=== PATIENT | male | born 1990 | race Hispanic/Latino ===

== ENCOUNTER 2023-06-02 13:29 | Emergency (ER) | payer OTHER, SELFPAY ==
[2023-06-02 13:29] VITALS: BP 125/85; PULSE 89; RESP 16; TEMP 36.7; O2SAT 99; BMI 23.8
--- NOTE | 2023-06-02 14:06 | EDS_ITS ---
HPI <MANUEL Mai - Last Filed: 06/02/23 15:37> History of Present Illness Chief Complaint: Flank Pain Narrative Narrative: 33-year-old male presents with left sided abdominal pain and left flank pain that has been worsening over the last month. It occurred a year ago off and on for several months but then went away for about 5 months. About a week ago he noticed small amount of bright red blood in his stool and took omeprazole and this resolved. He denies fever, chills, nausea, or vomiting, or urinary symptoms. He drinks alcohol occasionally but cannot quantify how much. No surgical history. PFSH <MANUEL Mai - Last Filed: 06/02/23 15:37> PFSH Medical History no medical history Allergy/AdvReac Type Severity Reaction Status Date / Time No Known Allergies Allergy Verified 06/02/23 14:24 Surgical History no surgical history ROS <MANUEL Mai - Last Filed: 06/02/23 15:37> ROS ED ROS Narrative Constitutional: Negative for fever, chills, malaise. CVS: Negative for chest pain. Respiratory: Negative for shortness of breath, cough. GI: Positive for abdominal pain. Negative for nausea, vomiting, diarrhea, constipation, melena. : Negative for dysuria, hematuria or frequency. EXAM <MANUEL Mai Last Filed: 06/02/23 15:37> Physical Exam Narrative Exam Narrative: CONST: Patient sitting in no acute distress. EYES: Normal inspection. NECK: Normal inspection. RESP: No respiratory distress, CTAB. CVS: Regular rate and rhythm, no murmur, no gallop. ABD: Soft and nontender, no guarding or rebound, nondistended, no hepatosplenomegaly. Back: Normal inspection, no CVA tenderness. SKIN: Color normal, no rash, warm, dry, intact. EXTREMITIES: Normal appearance, no pedal edema. NEURO: Oriented x4. PSYCH: Normal affect. Const Vital Signs: 06/02/23 13:29 Temperature 98.1 F Temperature Source Temporal Pulse Rate 89 Respiratory Rate 16 Blood Pressure 125/85 H Blood Pressure Mean 98 Pulse Ox 99 Oxygen Delivery Method Room Air <Dr. Miguel Thao DO - Last Filed: 06/02/23 15:32> Physical Exam Const Vital Signs: 06/02/23 13:29 Temperature 98.1 F Temperature Source Temporal Pulse Rate 89 Respiratory Rate 16 Blood Pressure 125/85 H Blood Pressure Mean 98 Pulse Ox 99 Oxygen Delivery Method Room Air [facility] <MANUEL Mai - Last Filed: 06/02/23 15:37> [facility] Narrative Medical decision making narrative: History gathered from: Patient and nursing informatics specialist at bedside Patient has had a month of left-sided abdominal and left flank pain. He has had this issue in the past as well. He appears well and nontoxic and is afebrile with normal vital signs. His cardiopulmonary exam is normal. He has no abdominal tenderness or distention and no flank tenderness. He indicates most of the left flank pain is actually in his lower back. Since there is a translation barrier and he is not established with a doctor broad work-up was initiated. CBC, CMP, and lipase are all within normal limits. Urinalysis is negative. CT shows no acute process. Patient is comfortable continuing OTC pain relievers and I provided the phone number for the [facility] for follow-up. He was discharged in stable condition. Differential: Musculoskeletal pain, GERD, pancreatitis, kidney stone, UTI among others Lab Data Attestation: I reviewed the patient's lab results. Labs: Laboratory Results - last 24 hr 06/02/23 06/02/23 14:15 14:30 WBC 6.4 RBC 4.96 Hgb 15.3 Hct 44.3 MCV 89.3 MCH 30.8 MCHC 34.5 RDW Std Deviation 38.2 RDW Coeff of Ton 11.9 Plt Count 206 MPV 11.0 Immature Gran % (Auto) 0.300 Neut % (Auto) 54.9 Lymph % (Auto) 29.5 [place] % (Auto) 4.2 Eos % (Auto) 10.2 H Baso % (Auto) 0.9 Absolute Neuts (auto) 3.5 Absolute Lymphs (auto) 1.88 Nucleated RBC % 0 Sodium 140 Potassium 4.1 Chloride 106 Carbon Dioxide 29.0 Anion Gap 5 BUN 14 Creatinine 0.84 Estim Creat Clear Calc 107.79 Est GFR (MDRD) Af Amer 134 Est GFR (MDRD) Non-Af 111 BUN/Creatinine Ratio 16.6 Glucose 96 Calcium 9.1 Total Bilirubin 0.60 AST 15 ALT 25 Alkaline Phosphatase 67 Total Protein 7.9 Albumin 4.2 Globulin 3.7 Albumin/Globulin Ratio 1.1 Lipase 25 Urine Color Yellow Urine Clarity Clear Urine pH 7.0 Ur Specific [place] 1.010 Urine Protein 15 H Urine Glucose (UA) Normal Urine Ketones Negative Urine Occult Blood Negative Urine Nitrite Negative Urine Bilirubin Negative Urine Urobilinogen Normal Ur Leukocyte Esterase Negative Urine RBC 0 SEEN Urine WBC 0 SEEN Ur Squamous Epith Cells 0 SEEN Urine Bacteria 0 SEEN Urine Mucus 0 SEEN Radiography Diagnostic Testing: Clinical Impression(s) from Imaging Studies Abdomen/Pelvis CT 06/02/23 14:42 IMPRESSION: Normal unenhanced CT of the abdomen and pelvis. Electronically Signed: Jeffery Montgomery MD at 15:10 EDT , <Dr. Miguel Thao, DO - Last Filed: 06/02/23 15:32> [facility] Lab Data Labs: Laboratory Results - last 24 hr 06/02/23 06/02/23 14:15 14:30 WBC 6.4 RBC 4.96 Hgb 15.3 Hct 44.3 MCV 89.3 MCH 30.8 MCHC 34.5 RDW Std Deviation 38.2 RDW Coeff of Ton 11.9 Plt Count 206 MPV 11.0 Immature Gran % (Auto) 0.300 Neut % (Auto) 54.9 Lymph % (Auto) 29.5 [place] % (Auto) 4.2 Eos % (Auto) 10.2 H Baso % (Auto) 0.9 Absolute Neuts (auto) 3.5 Absolute Lymphs (auto) 1.88 Nucleated RBC % 0 Sodium 140 Potassium 4.1 Chloride 106 Carbon Dioxide 29.0 Anion Gap 5 BUN 14 Creatinine 0.84 Estim Creat Clear Calc 107.79 Est GFR (MDRD) Af Amer 134 Est GFR (MDRD) Non-Af 111 BUN/Creatinine Ratio 16.6 Glucose 96 Calcium 9.1 Total Bilirubin 0.60 AST 15 ALT 25 Alkaline Phosphatase 67 Total Protein 7.9 Albumin 4.2 Globulin 3.7 Albumin/Globulin Ratio 1.1 Lipase 25 Urine Color Yellow Urine Clarity Clear Urine pH 7.0 Ur Specific [place] 1.010 Urine Protein 15 H Urine Glucose (UA) Normal Urine Ketones Negative Urine Occult Blood Negative Urine Nitrite Negative Urine Bilirubin Negative Urine Urobilinogen Normal Ur Leukocyte Esterase Negative Urine RBC 0 SEEN Urine WBC 0 SEEN Ur Squamous Epith Cells 0 SEEN Urine Bacteria 0 SEEN Urine Mucus 0 SEEN Radiography Diagnostic Testing: Clinical Impression(s) from Imaging Studies Abdomen/Pelvis CT 06/02/23 14:42 IMPRESSION: Normal unenhanced CT of the abdomen and pelvis. Electronically Signed: Jeffery Montgomery MD at 15:10 EDT , Treatment and Re-Evaluation :: ED attending note: I evaluated the patient in conjunction with the JARRED. I agree with his/her statements and above findings. I have personally performed a face to face assessment of the patient and have reviewed the JARRED Note. I performed a substantive portion of the visit including all aspects of the following. I personally saw the patient performed chart review, physical exam, reviewed labs, imaging (if obtained), and formulated a treatment and management plan. Exam: Nursing triage notes reviewed, Vital signs reviewed Constitutional: please see mdm HENT: MMM Eyes: Pupils equal round and reactive to light, Extraocular muscles intact Neck: No stridor, no JVD, full neck ROM Lungs: Clear to auscultation, No wheezing or rales. No increased work of breathing, no conversational dyspnea, no accessory muscle use, no nasal flaring. No respiratory distress noted Heart: Regular rate and rhythm, No murmurs, No rubs and No gallops, 2+ distal pulses (radial, femoral, posterior tibial) in all extremities Abdomen: Soft, there is no tenderness, rigidity, rebound or guarding, no obvious peritoneal signs, no palpable pulsatile abdominal masses, no auscultated abdominal bruit : Left CVA tenderness Extremities: No edema MDM/plan: Chief Complaint: Flank pain External records reviewed: No recent advanced imaging of the abdomen or pelvis I considered the following differential diagnosis: Nephrolithiasis, pyelonephritis, UTI, AAA We will obtain a CT scan abdomen pelvis rule out nephrolithiasis, AAA. Will obtain urinalysis for UTI and labs to screen for signs of liver dysfunction, pancreatitis, significant systemic inflammation or anemia. We will treat the patient with IV narcotics, anti-inflammatories and nausea medicine. We will disposition the patient based on results of labs, images, repeat abdominal exam and shared decision making. Factors affecting care: No past medical history Social determinants of health: Upper Sorbian-speaking only History obtained from others: The patient's friend Shared decision making: I will have a discussion with the patient and or visitors regarding ris k/benefits of further testing or admission. They will be made aware of of the risk/benefits inherent in this decision they will be given the opportunity to voice understanding. Consults: None Discharge Plan Triage Chief Complaint: Flank Pain ED Midlevel Provider: Elizabeth Walker ED Provider: Miguel Thao Dx/Rx/DC Orders Clinical Impression: Abdominal pain Instructions: Abdominal Pain, ED Flank Pain, Uncertain Cause Primary Care Provider: Care Physician,Char Primary Referrals: [facility] [Non-Staff] - NOT,DEFINED [Non-Staff] - Activity Restrictions/Additional Instructions: Your test today look normal. Please follow-up with the medical clinic for an appointment and they can help you further evaluate this issue. You can take Tylenol or ibuprofen as needed every 6 hours Disposition Disposition: Home, Self Care
[2023-06-02] MEDS: Morphine 4 MG/ML Syringe IV (14:24)
[2023-06-02] MEDS: Ondansetron 4 MG/2 ML Vial IV (14:24)
[2023-06-02 14:34] LABS: Absolute Lymphocyte Count 1.88 X10^3/uL (0.83-4.51); Absolute Neutrophil Count 3.5 X10^3/uL (2.0-7.7); Basophil# 0.06 X10^3/uL; Basophil% 0.9 % (0-1); Eosinophil# 0.65 X10^3/uL; Eosinophils% 10.2 % (0-5); Hematocrit 44.3 % (40-54); Hemoglobin 15.3 g/dL (13.0-16.5); Lymphocyte # 1.88 X10^3/ul (0.83-4.51); Lymphocyte % 29.5 % (19-41); Mean Corp Hgb Conc 34.5 g/dL (32-36); Mean Corpuscular Hgb 30.8 pg (27.0-32.0); Mean Corpuscular Volume 89.3 fL (80-94); Monocyte# 0.27 X10^3/uL; Monocyte% 4.2 % (0-10); NRBC Flagged by Analyzer 0 % (0-5); Neutrophil # 3.49 X10^3/uL (2.7-7.7); Neutrophil % 54.9 % (47-70); Platelet Count 206 K/mm3 (150-450); RBC Distribution Width CV 11.9 % (11.6-14.6); RBC Distribution Width SD 38.2 fl (35.1-43.9); Red Blood Count 4.96 M/mm3 (4.6-6.2); White Blood Count 6.4 K/mm3 (4.4-11.0)
[2023-06-02 14:40] LABS: ALB/GLOB Ratio 1.1 RATIO (0.9-2.4); AST(SGOT) 15 U/L (15-37); Alanine Aminotransfer ALT/SGPT 25 U/L (16-61); Albumin, Serum 4.2 g/dL (3.2-5.0); Alkaline Phosphatase 67 U/L (45-117); Anion Gap 5 (5-15); BUN 14 mg/dL (7-18); BUN/Creat Ratio 16.6 RATIO (10-20); Calcium,Total 9.1 mg/dL (8.5-10.1); Chloride 106 mmol/L (98-107); Creatinine, Serum 0.84 mg/dL (0.70-1.30); EST Glomerular Filtration Rate 111 mL/min (>60); Est Glom Filt Rate - Afr Amer 134 mL/min (>60); Estimated Creatinine Clearance 107.79 ml/min; Globulin 3.7 g/dL (2.2-4.2); Glucose 96 mg/dL (74-106); Lipase 25 U/L (13-75); Potassium 4.1 mmol/L (3.5-5.1); Protein, Total 7.9 g/dL (6.4-8.2); Sodium Level 140 mmol/L (136-145)
[2023-06-02 14:41] LABS: Bacteria 0 SEEN /hpf (None Seen); Mucous, Urine 0 SEEN /hpf (<or=2+); Red Blood Cells-Urine 0 SEEN /hpf (0-5); Squamous Epithelial Cells - UA 0 SEEN /hpf (0-5); White Blood Cells 0 SEEN /hpf (0-5)
--- NOTE | 2023-06-02 14:42 | CT_ITS ---
STUDY: CT ABDOMEN AND PELVIS WITHOUT CONTRAST REASON FOR EXAM: Male, 33 years old. Left flank pain AND TROUBLE URINATING RADIATION DOSAGE (If Supplied By Facility): CTDIvol = ( 6.07 ) mGy, DLP = ( 265.63 ) mGycm TECHNIQUE: Transaxial images were obtained from the dome of the diaphragm to the symphysis pubis without oral contrast, and without intravenous contrast. Sagittal and coronal images were reconstructed. Individualized dose optimization techniques were used for this CT. COMPARISON: None. FINDINGS: The visualized lung bases are unremarkable. The visualized portions of the heart are within normal limits. Normal liver. Normal gallbladder and extrahepatic biliary system. Normal spleen. Normal pancreas. Normal bilateral adrenal glands. Normal right kidney. Normal left kidney. Normal visualized stomach. Normal small intestine. Normal colon. The appendix is visualized and appears normal. Normal abdominal aorta. Normal inferior vena cava. Normal retroperitoneum. Normal urinary bladder. Normal abdominal wall. Normal osseous structures. CT/Abdomen/Pelvis without Cont IMPRESSION: Normal unenhanced CT of the abdomen and pelvis. Electronically Signed: Jeffery Montgomery MD at 15:10 EDT ,
[2023-06-02 14:45] LABS: Color, Urine Yellow (Yellow); Glucose, Dipstick Normal (Normal); Ketone-Dipstick Negative (Negative); Leukocyte Esterase-Dipstick Negative /ul (Negative); Nitrite-Dipstick Negative (Negative); Occult Blood-Urine Negative /ul (Negative); Protein-Dipstick 15 mg/dl (Negative); Urine Bilirubin Dipstick Negative (Negative); Urine Clarity Clear (Clear); Urine Urobilinogen Normal (Normal)
[2023-06-02] MEDS: Ketorolac 15 MG/ML Vial IV (15:37)
== END 2023-06-02 15:38 | disposition home or self-care (01) ==
PROVIDERS: Physician Assistant; Emergency Provider Emergency Medicine; Visit Provider Emergency Medicine
DX: R10.9 Unspecified abdominal pain (principal)
CPT/HCPCS: 74176; 80053; 81001; 83690; 85025; 96374; 96375; 99282; A4216; J2405

== ENCOUNTER 2023-09-30 13:23 | Emergency (ER) | payer SELFPAY ==
[2023-09-30 13:26] VITALS: BP 126/89; PULSE 84; RESP 14; TEMP 36.4; O2SAT 100; BMI 23.7
--- NOTE | 2023-09-30 13:56 | CT_ITS ---
STUDY: CT ABDOMEN AND PELVIS WITHOUT CONTRAST REASON FOR EXAM: Male, 33 years old. abd pain RADIATION DOSAGE (If Supplied By Facility): CTDIvol = ( 6.21 ) mGy, DLP = ( 287.17 ) mGycm TECHNIQUE: Transaxial images were obtained from the dome of the diaphragm to the symphysis pubis without oral contrast, and without intravenous contrast. Sagittal and coronal images were reconstructed. Individualized dose optimization techniques were used for this CT. COMPARISON: None. FINDINGS: The visualized lung bases are unremarkable. The visualized portions of the heart are within normal limits. Normal liver. Normal gallbladder and extrahepatic biliary system. Normal spleen. Normal pancreas. Normal bilateral adrenal glands. Normal right kidney. Normal left kidney. Normal visualized stomach. Normal small intestine. Normal colon. The appendix is visualized and appears normal. Appendix seen on coronal recon images 53 through 59 Normal abdominal aorta. Normal inferior vena cava. Normal retroperitoneum. Normal urinary bladder. Normal abdominal wall. Normal osseous structures. CT/Abdomen/Pelvis without Cont IMPRESSION: No suspicious solid organ abnormality No free intraperitoneal fluid, air, or suspicious adenopathy. Normal appendix visualized Electronically Signed: Alo Martinez MD at 15:19 EST ,
--- NOTE | 2023-09-30 13:57 | EX.ED.DYSGE1 ---
HPI History of Present Illness Chief Complaint: Abd Pain Informant: patient and friend Narrative Narrative: Patient presents with lower abdominal pain and dysuria. Patient is Georgian-speaking but has a an historian dramatic arts at bedside with him. Patient reportedly has had problems with lower abdominal pain and dysuria for the past 2 years. He was seen in [facility] for this previously. He had test done including an ultrasound and was ultimately given some form of medication that improved his symptoms. He states after some time they started to come back. Symptoms been worse over the past 2 days. He denies fever or chills. He denies vomiting or diarrhea. He states when he has to urinate he will feel pressure in his rectum as well. [facility] Medical History (Updated 09/30/23 @ 15:[address] Arianna Hunter MD) Abdominal pain Medical History no medical history no medical history Home Medications ciprofloxacin HCl 500 mg tablet 500 mg PO BID #28 TABLETS 09/30/23 [Rx Last Taken Unknown] naproxen 500 mg tablet (Naprosyn) 500 mg PO BID PRN pain #20 tabs 09/30/23 [Rx Last Taken Unknown] Allergy/AdvReac Type Severity Reaction Status Date / Time No Known Allergies Allergy Verified 09/30/23 13:26 Social History Smoking Status: Never smoker ROS ROS ED Constitutional Constitutional ED: Denies chills or fever(s) Eyes Eyes: Denies discharge from eye(s) ENT ENT ED: Denies discharge from eye(s), rhinorrhea or sore throat Cardiovascular Cardiovascular: Denies chest pain or palpitations Respiratory/Chest Respiratory/Chest: Denies cough or dyspnea Gastrointestinal Gastrointestinal: Reports abdominal pain; Denies diarrhea, nausea or vomiting Genitourinary Genitourinary ED: Reports dysuria Musculoskeletal Musculoskeletal: Reports back pain; Denies extremity pain Integumentary Denies Abrasions or rash Neurologic Neurologic: Denies headache(s) or weakness Psychiatric Psychiatric: Denies anxiety or depression Allergic/Immunologic Allergic/Immunologic ED: Denies lip swelling or urticaria EXAM Physical Exam Const Vital Signs: 09/30/23 13:26 Temperature 97.6 F L Temperature Source Temporal Pulse Rate 84 Respiratory Rate 14 Blood Pressure 126/89 H Blood Pressure Mean 101 Pulse Ox 100 Oxygen Delivery Method Room Air Positive well nourished and well developed General Appearance ED: well developed HEENT Reports moist mucous membranes Eyes EOMs intact bilaterally Chest Wall inspection of chest normal and palpation of chest normal Resp normal respiratory effort and clear to auscultation bilaterally Cardio regular rate and regular rhythm GI GI Narrative: Mild tenderness in the mid abdomen. No palpable masses. No guarding. Back/Spine no CVA tenderness Back/Spine Narrative: Mild muscular tenderness in the paraspinal region of the lower lumbar. No midline thoracic or lumbar tenderness. Extremity normal to inspection Neuro oriented x3 and no sensory deficits noted Motor Exam: strength 5/5 throughout Psych mental status grossly normal Skin no rashes or lesions noted MDM MDM MDM Narrative Medical decision making narrative: IV line established. Labwork obtained to evaluate for leukocytosis, anemia, and electrolyte derangement. Urinalysis obtained to evaluate for infection/hematuria. CT scan of the abdomen pelvis obtained to evaluate for possible kidney stone or prostate enlargement. History & Record Review Discussion w/independent historian: Patient and Friend Lab Data Attestation: I reviewed the patient's lab results. Labs: Laboratory Results - last 24 hr 09/30/23 09/30/23 14:15 14:30 WBC 7.4 RBC 4.81 Hgb 14.2 Hct 43.0 MCV 89.4 MCH 29.5 MCHC 33.0 RDW Std Deviation 39.3 RDW Coeff of Ton 12.0 Plt Count 197 MPV 11.0 Immature Gran % (Auto) 0.100 Neut % (Auto) 45.0 L Lymph % (Auto) 35.1 [place] % (Auto) 5.2 Eos % (Auto) 13.8 H Baso % (Auto) 0.8 Absolute Neuts (auto) 3.3 Absolute Lymphs (auto) 2.59 Nucleated RBC % 0 Sodium 140 Potassium 3.9 Chloride 108 H Carbon Dioxide 25.0 Anion Gap 7 BUN 20 H Creatinine 0.76 Estim Creat Clear Calc 119.13 Est GFR (MDRD) Af Amer 152 Est GFR (MDRD) Non-Af 125 BUN/Creatinine Ratio 26.3 H Glucose 104 Calcium 8.6 Urine Color Yellow Urine Clarity Clear Urine pH 6.5 Ur Specific [place] 1.010 Urine Protein Negative Urine Glucose (UA) Normal Urine Ketones Negative Urine Occult Blood Negative Urine Nitrite Negative Urine Bilirubin Negative Urine Urobilinogen Normal Ur Leukocyte Esterase Negative Urine RBC 0 SEEN Urine WBC 0 SEEN Ur Squamous Epith Cells 0 SEEN Urine Bacteria 0 SEEN Urine Mucus 0 SEEN Radiography Diagnostic Testing: Clinical Impression(s) from Imaging Studies Abdomen/Pelvis CT 09/30/23 13:56 IMPRESSION: No suspicious solid organ abnormality No free intraperitoneal fluid, air, or suspicious adenopathy. Normal appendix visualized Electronically Signed: Alo Martinez MD at 15:19 EST Reading Location ID and State: [address] [place] [address] , Service support , Treatment and Re-Evaluation :: CBC was normal white count 7.4 with a hemoglobin of 14.2. Differential is unremarkable. Chemistry studies are unremarkable. Urinalysis reveals no evidence of infection. No hematuria. CT of the flank reveals no suspicious solid organ abnormality. There is no free intraperitoneal fluid, air, or suspicious adenopathy. Appendix is visualized and is normal. Test results are discussed with patient and friend at bedside. His symptoms are consistent with a prostatitis although they do not see significant inflammation on the scan. I will cover him with a 2-week course of ciprofloxacin as well as Naprosyn for pain. He will be referred to urology for follow-up. Return instructions provided. Discharge Plan Triage Chief Complaint: Abd Pain ED Provider: Arianna Hunter Dx/Rx/DC Orders Clinical Impression: Prostatitis Instructions: ED Prostatitis Prescriptions: New naproxen [Naprosyn] 500 mg tablet 500 mg PO BID PRN (Reason: pain) Qty: 20 0RF ciprofloxacin HCl 500 mg tablet 500 mg PO BID Qty: 28 0RF Primary Care Provider: Care Physician,No Primary Referrals: Emanuel Figueroa MD [Med Staff - Active Staff] - 1-2 Weeks Care Physician,No Primary [Primary Care Provider] - Disposition Disposition: Home, Self Care
[2023-09-30 14:26] LABS: Absolute Lymphocyte Count 2.59 X10^3/uL (0.83-4.51); Absolute Neutrophil Count 3.3 X10^3/uL (2.0-7.7); Basophil# 0.06 X10^3/uL; Basophil% 0.8 % (0-1); Eosinophil# 1.02 X10^3/uL; Eosinophils% 13.8 % (0-5); Hemoglobin 14.2 g/dL (13.0-16.5); Lymphocyte # 2.59 X10^3/ul (0.83-4.51); Lymphocyte % 35.1 % (19-41); Mean Corpuscular Hgb 29.5 pg (27.0-32.0); Mean Corpuscular Volume 89.4 fL (80-94); Monocyte# 0.38 X10^3/uL; Monocyte% 5.2 % (0-10); NRBC Flagged by Analyzer 0 % (0-5); Neutrophil # 3.31 X10^3/uL (2.7-7.7); Platelet Count 197 K/mm3 (150-450); RBC Distribution Width SD 39.3 fl (35.1-43.9); Red Blood Count 4.81 M/mm3 (4.6-6.2); White Blood Count 7.4 K/mm3 (4.4-11.0)
[2023-09-30] MEDS: Ketorolac 30 MG/ML Syringe IV (14:26)
[2023-09-30] MEDS: 0.9% Normal Saline (1000mL) 1,000 ML 150 ML IV (14:26)
[2023-09-30 14:34] LABS: Bacteria 0 SEEN /hpf (None Seen); Color, Urine Yellow (Yellow); Glucose, Dipstick Normal (Normal); Ketone-Dipstick Negative (Negative); Leukocyte Esterase-Dipstick Negative /ul (Negative); Mucous, Urine 0 SEEN /hpf (<or=2+); Nitrite-Dipstick Negative (Negative); Occult Blood-Urine Negative /ul (Negative); Protein-Dipstick Negative (Negative); Red Blood Cells-Urine 0 SEEN /hpf (0-5); Squamous Epithelial Cells - UA 0 SEEN /hpf (0-5); Urine Bilirubin Dipstick Negative (Negative); Urine Clarity Clear (Clear); Urine Urobilinogen Normal (Normal); Urine pH 6.5 (5.0 - 8.0); White Blood Cells 0 SEEN /hpf (0-5)
[2023-09-30 15:23] LABS: Anion Gap 7 (5-15); BUN 20 mg/dL (7-18); BUN/Creat Ratio 26.3 RATIO (10-20); Calcium,Total 8.6 mg/dL (8.5-10.1); Chloride 108 mmol/L (98-107); Creatinine, Serum 0.76 mg/dL (0.70-1.30); EST Glomerular Filtration Rate 125 mL/min (>60); Est Glom Filt Rate - Afr Amer 152 mL/min (>60); Estimated Creatinine Clearance 119.13 ml/min; Glucose 104 mg/dL (74-106); Potassium 3.9 mmol/L (3.5-5.1); Sodium Level 140 mmol/L (136-145)
[2023-09-30] MEDS: Ciprofloxacin 500 MG Tablet PO (15:58)
== END 2023-09-30 16:07 | disposition home or self-care (01) ==
PROVIDERS: Emergency Provider Emergency Medicine; Visit Provider Emergency Medicine
DX: N41.9 Inflammatory disease of prostate, unspecified (principal)
CPT/HCPCS: 74176; 80048; 81001; 85025; 87491; 87591; 96361; 96374; 99283

== ENCOUNTER 2024-02-01 11:23 | Emergency (ER) | payer SELFPAY ==
[2024-02-01 11:24] VITALS: BP 120/86; PULSE 83; RESP 14; TEMP 36.2; O2SAT 97; BMI 22.6
--- NOTE | 2024-02-01 13:20 | EDS_ITS ---
HPI History of Present Illness Chief Complaint: Abd Pain [facility] Medical History (Updated 10/08/23 @ 00:13 by Background Lynsey) Abdominal pain Home Medications ciprofloxacin HCl 500 mg tablet 500 mg PO BID #28 TABLETS 09/30/23 [Rx Last Taken Unknown] naproxen 500 mg tablet (Naprosyn) 500 mg PO BID PRN pain #20 tabs 09/30/23 [Rx Last Taken Unknown] Allergy/AdvReac Type Severity Reaction Status Date / Time No Known Allergies Allergy Verified 02/01/24 11:24 Social History Smoking Status: Never smoker EXAM Physical Exam Const Vital Signs: 02/01/24 11:24 Temperature 97.1 F L Temperature Source Temporal Pulse Rate 83 Respiratory Rate 14 Blood Pressure 120/86 H Blood Pressure Mean 97 Pulse Ox 97 Oxygen Delivery Method Room Air MDM MDM MDM Narrative Medical decision making narrative: HISTORY OF PRESENT ILLNESS:
--- NOTE | 2024-02-01 13:20 | EX.ED.DYSGE1 ---
HPI History of Present Illness Chief Complaint: Abd Pain [facility] Medical History (Updated 10/08/23 @ 00:13 by Background Daemon) Abdominal pain Home Medications ciprofloxacin HCl 500 mg tablet 500 mg PO BID #28 TABLETS 09/30/23 [Rx Last Taken Unknown] naproxen 500 mg tablet (Naprosyn) 500 mg PO BID PRN pain #20 tabs 09/30/23 [Rx Last Taken Unknown] doxycycline hyclate 100 mg capsule 100 mg PO DAILY #28 caps 02/01/24 [Rx Last Taken Unknown] Allergy/AdvReac Type Severity Reaction Status Date / Time No Known Allergies Allergy Verified 02/01/24 11:24 Social History Smoking Status: Never smoker EXAM Physical Exam Const Vital Signs: 02/01/24 11:24 02/01/24 15:00 02/01/24 15:50 Temperature 97.1 F L 97.7 F L Temperature Source Temporal Pulse Rate 83 61 61 Respiratory Rate 14 16 16 Blood Pressure 120/86 H 104/70 111/78 Blood Pressure Mean 97 81 89 Pulse Ox 97 100 100 Oxygen Delivery Method Room Air Room Air MDM MDM MDM Narrative Medical decision making narrative: HISTORY OF PRESENT ILLNESS: 34-year-old male here with left lower quadrant abdominal pain. Notes pain radiates to his right scapula. Notes 3 pound weight loss in last 4 months. Notes lower abdominal pain. Notes sense of fullness in his rectum. States he has had intermittent constipation however last bowel was 2 days ago. Denies any vomiting or fever. Denies any history of cancer. REVIEW OF SYSTEMS: Pertinent positives: Abdominal pain, weight loss, constipation Pertinent negatives: Fever, vomiting PHYSICAL EXAM: Nursing triage notes reviewed, Vital signs reviewed Constitutional: please see mdm HENT: MMM Eyes: Pupils equal round and reactive to light, Extraocular muscles intact Neck: No stridor, no JVD, full neck ROM Lungs: Clear to auscultation, No wheezing or rales. No increased work of breathing, no conversational dyspnea, no accessory muscle use, no nasal flaring. No respiratory distress noted Heart: Regular rate and rhythm, No murmurs, No rubs and No gallops, 2+ distal pulses (radial, femoral, posterior tibial) in all extremities Abdomen: Soft, there is no tenderness, rigidity, rebound or guarding, no obvious peritoneal signs, no palpable pulsatile abdominal masses, no auscultated abdominal bruit : No CVAT Extremities: No edema rectal: Performed materials planning analyst in room shows no evidence of hemorrhoids, no bleeding, no fissures, no stool impaction. Boggy tender prostate. Neuro: No focal neurological deficits, cranial nerves II through XII intact, 5/5 strength in all extremities. Intact sensation to light touch in all extremities, 2+ reflexes bilateral patella tendons. Normal gait. No ataxia. Skin: No rash or lesions noted MEDICAL DECISION MAKING: Chief Complaint: Abdominal pain External records reviewed: CT scan of the abdomen pelvis from 2022 shows no suspicious solid organ abnormality, no surgical process Factors affecting care: none Social determinants of health: Bengali-speaking History obtained from others: none Consults: none [facility] Narrative: Patient was hemodynamically stable, afebrile and nontoxic-appearing. Abdominal exam was benign. Rectal exam showed no evidence of stool impaction. No evidence of hemorrhoids. I considered the following differential diagnosis: AAA, small bowel obstruction, abdominal perforation, appendicitis, pancreatitis, hepatobiliary pathology (acute cholecystitis), mesenteric ischemia, pathology (ie nephrolithiasis, pyelonephritis). I obtained a broad lab and imaging workup to further elucidate etiology patient complaints. Give the patient IV fluids, Zofran and Toradol for symptomatic relief. ALL IMAGES (IF OBTAINED) HAVE BEEN PERSONALLY REVIEWED AND INTERPRETED BY MYSELF. CBC without leukocytosis, severe anemia, no thrombocytopenia. BMP without evidence of significant electrolyte abnormalities, no anion gap, no acute kidney injury. Lipase is wnl indicating no pancreatic inflammation. CT scan abdomen pelvis shows evidence of enlarged prostate concerning for recurrence of prostatitis. The synthesis of the patient's history, physical exam, labs images suggest likely prostatitis. Will give IM ceftriaxone and p.o. doxycycline for prophylactic STD coverage and prostatitis treatment. Will give PCP and GI follow-up for further outpatient evaluation. Patient's weight loss is unclear is not life-threatening at this time can be followed as an outpatient. The patient and/or family, caregivers express understanding. The patient and/or family, caregivers agrees with the plan. Shared decision making: I will have a discussion with the patient and or visitors regarding risk/benefits of further testing or admission. They will be made aware of of the risk/benefits inherent in this decision they will be given the opportunity to voice understanding. Total critical care time today provided was at least 0 minutes. This excludes separately billable procedures. Critical care time (if documented) is secondary to the patient having high probability of clinically significant/life threatening deterioration in the patient's condition which required my urgent intervention. Impression: 1. Prostatitis Dispo: Discharge This note was generated with [employer] dictation software. It may contain incorrect words, spelling, and punctuation that were not noted in review of the chart prior to signing. Lab Data Labs: Laboratory Results - last 24 hr 02/01/24 02/01/24 13:45 14:59 WBC 8.2 RBC 4.79 Hgb 14.1 Hct 42.4 MCV 88.5 MCH 29.4 MCHC 33.3 RDW Std Deviation 38.9 RDW Coeff of Ton 12.1 Plt Count 178 MPV 11.0 Immature Gran % (Auto) 0.100 Neut % (Auto) 59.0 Lymph % (Auto) 27.3 Creek % (Auto) 4.2 Eos % (Auto) 8.4 H Baso % (Auto) 1.0 Absolute Neuts (auto) 4.9 Absolute Lymphs (auto) 2.25 Nucleated RBC % 0 Sodium 140 Potassium 3.9 Chloride 108 H Carbon Dioxide 30.0 Anion Gap 2 L BUN 14 Creatinine 0.76 Estim Creat Clear Calc 109.18 Est GFR (MDRD) Af Amer 149 Est GFR (MDRD) Non-Af 123 BUN/Creatinine Ratio 18.3 Glucose 94 Calcium 9.2 Lipase 20 Urine Color Straw Urine Clarity Clear Urine pH 7.0 Ur Specific [place] 1.005 Urine Protein Negative Urine Glucose (UA) Normal Urine Ketones 5 H Urine Occult Blood Negative Urine Nitrite Negative Urine Bilirubin Negative Urine Urobilinogen Normal Ur Leukocyte Esterase Negative Radiography Diagnostic Testing: Clinical Impression(s) from Imaging Studies Abdomen/Pelvis CT 02/01/24 13:21 IMPRESSION: Mild enlargement of the prostate. Electronically Signed: Jeffery Montgomery MD at 14:28 EDT , Discharge Plan Triage Chief Complaint: Abd Pain ED Provider: Miguel Thao Dx/Rx/DC Orders Instructions: ED Prostatitis Prescriptions: New doxycycline hyclate 100 mg capsule 100 mg PO DAILY Qty: 28 0RF No Action naproxen [Naprosyn] 500 mg tablet 500 mg PO BID PRN (Reason: pain) Qty: 20 0RF ciprofloxacin HCl 500 mg tablet 500 mg PO BID Qty: 28 0RF Primary Care Provider: Care Physician,No Primary Referrals: Jennifer Severino MD [Med Staff - [employer]] - Friend,DO Manas [Med Staff - Active Staff] - Activity Restrictions/Additional Instructions: Thank you for trusting us with your care today! You have been diagnosed with prostatitis. This is inflammation and likely infection of your prostate. Please take Tylenol (2 pills, 650 mg), ibuprofen (2 pills, 400 mg) every 6 hours as needed for pain and fever control. Please take antibiotics as prescribed. Please finish entire course. Please go to local pharmacy or drugstore and obtain MiraLAX, senna and Colace take these daily until desired consistency of bowel movements is achieved. Please return to the emergency department if your symptoms change or worsen. Please follow with your primary care physician for further outpatient evaluation and management. Disposition Disposition: Home, Self Care Discharge Date/Time: 02/01/24 16:23
--- NOTE | 2024-02-01 13:21 | CT_ITS ---
STUDY: CT ABDOMEN AND PELVIS WITH CONTRAST REASON FOR EXAM: Male, 34 years old. LLQ abdominal pain. 30 pound weight loss in 4 months. RADIATION DOSAGE (If Supplied By Facility): CTDIvol = ( 8.32 ) mGy, DLP = ( 306.35 ) mGycm TECHNIQUE: Transaxial images were obtained from the dome of the diaphragm to the symphysis pubis without oral contrast. IV 100mL Isovue-[id number] was administered. Sagittal and coronal images were reconstructed. Individualized dose optimization techniques were used for this CT. COMPARISON: Comparison is made with prior study dated September 30, 2023. FINDINGS: The visualized lung bases are unremarkable. The visualized portions of the heart are within normal limits. Normal liver. Normal gallbladder and extrahepatic biliary system. Normal spleen. Normal pancreas. Normal bilateral adrenal glands. Normal right kidney. Normal left kidney. Normal visualized stomach. Normal small intestine. Moderate amount of fecal material is seen in the colon. The appendix is visualized and appears normal. Normal abdominal aorta. Normal inferior vena cava. Normal retroperitoneum. Normal urinary bladder. The prostate is slightly enlarged and measures 4.5 cm by 3.7 cm. Normal abdominal wall. Normal osseous structures. CT/Abdomen/Pelvis W IV Cont ONLY IMPRESSION: Mild enlargement of the prostate. Electronically Signed: Jeffery Montgomery MD at 14:28 EDT ,
[2024-02-01] MEDS: 0.9% Normal Saline (1000mL) 1,000 ML 1000 ML IV (13:53)
[2024-02-01] MEDS: Ketorolac 15 MG/ML Vial IV (13:53)
[2024-02-01] MEDS: Ondansetron 4 MG/2 ML Vial IV (13:53)
[2024-02-01 13:58] LABS: Absolute Lymphocyte Count 2.25 X10^3/uL (0.83-4.51); Absolute Neutrophil Count 4.9 X10^3/uL (2.0-7.7); Basophil# 0.08 X10^3/uL; Eosinophil# 0.69 X10^3/uL; Eosinophils% 8.4 % (0-5); Hematocrit 42.4 % (40-54); Hemoglobin 14.1 g/dL (13.0-16.5); Lymphocyte # 2.25 X10^3/ul (0.83-4.51); Lymphocyte % 27.3 % (19-41); Mean Corp Hgb Conc 33.3 g/dL (32-36); Mean Corpuscular Hgb 29.4 pg (27.0-32.0); Mean Corpuscular Volume 88.5 fL (80-94); Monocyte# 0.35 X10^3/uL; Monocyte% 4.2 % (0-10); NRBC Flagged by Analyzer 0 % (0-5); Neutrophil # 4.86 X10^3/uL (2.7-7.7); Platelet Count 178 K/mm3 (150-450); RBC Distribution Width CV 12.1 % (11.6-14.6); RBC Distribution Width SD 38.9 fl (35.1-43.9); Red Blood Count 4.79 M/mm3 (4.6-6.2); White Blood Count 8.2 K/mm3 (4.4-11.0)
[2024-02-01 14:13] LABS: Anion Gap 2 (5-15); BUN 14 mg/dL (7-18); BUN/Creat Ratio 18.3 RATIO (10-20); Calcium,Total 9.2 mg/dL (8.5-10.1); Chloride 108 mmol/L (98-107); Creatinine, Serum 0.76 mg/dL (0.70-1.30); EST Glomerular Filtration Rate 123 mL/min (>60); Est Glom Filt Rate - Afr Amer 149 mL/min (>60); Estimated Creatinine Clearance 109.18 ml/min; Glucose 94 mg/dL (74-106); Lipase 20 U/L (13-75); Potassium 3.9 mmol/L (3.5-5.1); Sodium Level 140 mmol/L (136-145)
[2024-02-01 15:00] VITALS: BP 104/70; PULSE 61; RESP 16; O2SAT 100
[2024-02-01 15:10] LABS: Color, Urine Straw (Yellow); Glucose, Dipstick Normal (Normal); Ketone-Dipstick 5 mg/dl (Negative); Leukocyte Esterase-Dipstick Negative /ul (Negative); Nitrite-Dipstick Negative (Negative); Occult Blood-Urine Negative /ul (Negative); Protein-Dipstick Negative (Negative); Specific Gravity, Urine 1.005 (1.002-1.030); Urine Bilirubin Dipstick Negative (Negative); Urine Clarity Clear (Clear); Urine Urobilinogen Normal (Normal)
[2024-02-01] MEDS: Doxycycline 100 MG CAPSULE PO (15:47)
[2024-02-01 15:50] VITALS: BP 111/78; PULSE 61; RESP 16; TEMP 36.5; O2SAT 100
[2024-02-01] MEDS: Ceftriaxone 500 MG Vial IM (15:56)
== END 2024-02-01 16:23 | disposition home or self-care (01) ==
PROVIDERS: Emergency Provider Emergency Medicine; Visit Provider Emergency Medicine
DX: R10.32 Left lower quadrant pain (principal); N41.9 Inflammatory disease of prostate, unspecified
CPT/HCPCS: 74177; 80048; 81002; 83690; 85025; 96361; 96372; 96374; 96375; 99283; Q9967; A4216; J2405